=== PATIENT | female | born 1980 | race Caucasian/White ===

== ENCOUNTER 2020-08-08 15:18 | Emergency (ER) | payer MEDICARE ==
[~2020-08-08] VITALS: Ht 167.7 cm; Wt 79.1 kg
[~2020-08-08 15:18] MED LIST: CRS350T PO; HYDR-2890 PO
--- NOTE | 2020-08-08 15:21 | ED General ---
General Stated Complaint: VOMITING,DIARRHEA,ALL OVER BODY ACHES Source of Information: Patient History of Present Illness Date Seen by Provider: Aug 08, 2020 Time Seen by Provider: 15:21 Initial Comments Patient is a 40-year-old female with past medical history significant for bipolar disorder. She comes to the ER today for GI upset. Patient ate some pizza last night. Shortly after eating the pizza, she had onset of vomiting and diarrhea. She has had a total of 3 episodes of emesis since onset of symptoms. She has had too numerous to count episodes of diarrhea. She has been unable to eat food for lack of appetite and states every time she eats she has immediate episode of diarrhea. No blood. She is currently on her menstrual cycle. No fever. She does complain of some pain over the epigastric area of her abdomen. She was healthy prior to onset of symptoms. No recent viral symptoms. Allergies and Home Medications Allergies Coded Allergies: No Known Drug Allergies (Unverified , 08/09/12) Home Medications Ondansetron 4 Mg Tab.rapdis, 4 MG PO Q6H Prescribed by: NICOLASA HEREDIA on 08/08/20 9893 Patient Home Medication List Home Medication List Reviewed: Yes Review of Systems Review of Systems Constitutional: weakness EENTM: no symptoms reported Respiratory: no symptoms reported Cardiovascular: no symptoms reported Gastrointestinal: see HPI Genitourinary: no symptoms reported Musculoskeletal: no symptoms reported Skin: no symptoms reported All Other Systems Reviewed Negative Unless Noted: Yes Past Tessvnf-Sllsyc-Xfcket Hx Patient Social History Recent Foreign Travel: No Contact w/Someone Who Travel: No Past Medical History Scoliosis Physical Exam Vital Signs Vital Signs - First Documented 08/08/20 15:20 Temp 36.1 Pulse 104 Resp 18 B/P (MAP) 106/77 (87) Pulse Ox 98 O2 Delivery Room Air Capillary Refill : Height, Weight, BMI Height: '" Weight: lbs. oz. kg; BMI Method:Stated General Appearance: No Apparent Distress, WD/WN HEENT: PERRL/EOMI Neck: Full Range of Motion, Supple Respiratory: Lungs Clear, Normal Breath Sounds Cardiovascular: Regular Rate, Rhythm, No Murmur Gastrointestinal: Normal Bowel Sounds, Soft, Other (mild tenderness to palpation over epigastric area but no guarding or rebound) Extremity: Normal Capillary Refill Neurologic/Psychiatric: Alert, Oriented x3 Skin: Normal Color, Warm/Dry Progress/Results/Core Measures Suspected Sepsis SIRS Temperature: Pulse: Respiratory Rate: Laboratory Tests 08/08/20 15:30: White Blood Count 16.0H Blood Pressure / Mean: Laboratory Tests 08/08/20 15:30: Creatinine 0.65, Platelet Count 392, Total Bilirubin 0.3 Results/Orders Lab Results Laboratory Tests Test 08/08/20 15:20 08/08/20 15:30 Range/Units Urine Color DARK YELLOW Urine Clarity CLOUDY Urine pH 6.5 5-9 Urine Specific [place] 1.025 H 1.016-1.022 Urine Protein TRACE H NEGATIVE Urine Glucose (UA) NEGATIVE NEGATIVE Urine Ketones 2+ H NEGATIVE Urine Nitrite NEGATIVE NEGATIVE Urine Bilirubin 1+ H NEGATIVE Urine Urobilinogen 0.2 < = 1.0 MG/DL Urine Leukocyte Esterase NEGATIVE NEGATIVE Urine RBC (Auto) 2+ H NEGATIVE Urine RBC 0-2 /HPF Urine WBC 2-5 /HPF Urine Squamous Epithelial Cells 25-50 H /HPF Urine Crystals NONE /LPF Urine Bacteria FEW H /HPF Urine Casts NONE /LPF Urine Mucus MODERATE H /LPF Urine Culture Indicated NO Urine Test NEGATIVE NEGATIVE White Blood Count 16.0 H 4.3-11.0 10^3/uL Red Blood Count 4.67 4.35-5.85 10^6/uL Hemoglobin 15.2 11.5-16.0 G/DL Hematocrit 43 35-52 % Mean Corpuscular Volume 92 80-99 FL Mean Corpuscular Hemoglobin 33 25-34 PG Mean Corpuscular Hemoglobin Concent 35 32-36 G/DL Red Cell Distribution Width 13.0 10.0-14.5 % Platelet Count 392 130-400 10^3/uL Mean Platelet Volume 10.0 7.4-10.4 FL Neutrophils (%) (Auto) 82 H 42-75 % Lymphocytes (%) (Auto) 12 12-44 % Monocytes (%) (Auto) 6 0-12 % Eosinophils (%) (Auto) 0 0-10 % Basophils (%) (Auto) 0 0-10 % Neutrophils # (Auto) 13.1 H 1.8-7.8 X 10^3 Lymphocytes # (Auto) 1.9 1.0-4.0 X 10^3 Monocytes # (Auto) 1.0 0.0-1.0 X 10^3 Eosinophils # (Auto) 0.0 0.0-0.3 10^3/uL Basophils # (Auto) 0.0 0.0-0.1 10^3/uL Neutrophils % (Manual) 61 % Lymphocytes % (Manual) 10 % Monocytes % (Manual) 7 % Eosinophils % (Manual) 0 % Basophils % (Manual) 0 % Band Neutrophils 19 % Atypical Lymphocytes 3 % Blood Morphology Comment NORMAL Sodium Level 135 135-145 MMOL/L Potassium Level 3.6 3.6-5.0 MMOL/L Chloride Level 96 L 98-107 MMOL/L Carbon Dioxide Level 22 21-32 MMOL/L Anion Gap 17 H 5-14 MMOL/L Blood Urea Nitrogen 7 7-18 MG/DL Creatinine 0.65 0.60-1.30 MG/DL Estimat Glomerular Filtration Rate > 60 BUN/Creatinine Ratio 11 Glucose Level 105 70-105 MG/DL Calcium Level 9.8 8.5-10.1 MG/DL Corrected Calcium 8.5-10.1 MG/DL Total Bilirubin 0.3 0.1-1.0 MG/DL Aspartate Amino Transf (AST/SGOT) 12 5-34 U/L Alanine Aminotransferase (ALT/SGPT) 11 0-55 U/L Alkaline Phosphatase 82 40-136 U/L Total Protein 7.9 6.4-8.2 GM/DL Albumin 4.6 H 3.2-4.5 GM/DL Lipase 13 8-78 U/L My Orders Orders - NICOLASA HEREDIA DO Ed Iv/Invasive Line Start (08/08/20 15:23) Cbc With Automated Diff (08/08/20 15:23) Comprehensive Metabolic Panel (08/08/20 15:23) Lipase (08/08/20 15:23) Urinalysis (08/08/20 15:23) Hcg,Qualitative Urine (08/08/20 15:23) Prochlorperazine Injection (Compazine In (08/08/20 15:30) Diphenhydramine Injection (Benadryl Inje (08/08/20 15:30) Ns Iv 1000 Ml (Sodium Chloride 0.9%) (08/08/20 15:30) Famotidine Injection (Pepcid Injection) (08/08/20 15:30) Ct Abdomen/Pelvis W (08/08/20 15:33) Manual Differential (08/08/20 15:30) Iohexol Injection (Omnipaque 350 Mg/Ml 1 (08/08/20 16:00) Received Contrast (Hold Metformin- Contr (08/08/20 16:00) Sodium Chloride Flush (Catheter Flush Sy (08/08/20 16:00) Ns (Ivpb) (Sodium Chloride 0.9% Ivpb Bag (08/08/20 16:00) D5 1/2 Ns 1000 Ml Iv Solution (Dextrose (08/08/20 16:30) Ondansetron Injection (Zofran Injectio (08/08/20 17:15) Medications Given in ED Current Medications Medications Dose Ordered Sig/Martha Route Start Time Stop Time Status Last Admin Dose Admin Diphenhydramine HCl 12.5 mg ONCE ONCE IM 08/08/20 15:30 08/08/20 15:31 DC 08/08/20 15:42 12.5 MG Famotidine 20 mg ONCE ONCE IVP 08/08/20 15:30 08/08/20 15:31 DC 08/08/20 15:43 20 MG Iohexol 100 ml ONCE ONCE IV 08/08/20 16:00 08/08/20 16:01 DC 08/08/20 16:15 100 ML Prochlorperazine Edisylate 10 mg ONCE ONCE IV 08/08/20 15:30 08/08/20 15:31 DC 08/08/20 15:42 10 MG Sodium Chloride 10 ml NEEDED PRN IV 08/08/20 16:00 08/08/20 16:15 10 ML Sodium Chloride 100 ml ONCE ONCE IV 08/08/20 16:00 08/08/20 16:01 DC 08/08/20 16:15 100 ML Vital Signs/I&O 08/08/20 15:20 Temp 36.1 Pulse 104 Resp 18 B/P (MAP) 106/77 (87) Pulse Ox 98 O2 Delivery Room Air Capillary Refill : Progress Note : Time: 15:32 Progress Note Patient is examined on arrival to her room. She is in no acute distress but does feel nauseated. She has GI distress that occurred after she ate food last evening. We will place IV, check labs, and give her medications for symptom relief and reevaluate. 117:31: Patient is feeling much better. CT scan is reviewed and without acute findings. Labs are overall normal. She does have some ketones in the urine. She has no findings suspicious for acute infectious problem. Urine sample was contaminated but also without signs of infection. She is currently feeling better after receiving Compazine and Benadryl. She received 1 L of normal saline in the ER followed by 1 L of D5NS. Plan is for discharge home. She is given Zofran to use for symptom relief at home. Return precautions discussed and she will come back to the ER for any new or worsening symptoms. Otherwise, follow-up with primary care doctor. Incidentally, the patient suffered a dog bite last week. She has sutures in the posterior left leg which are due for removal. The wound is well healing with no signs of infection despite that she was unable to tolerate the antibiotics prescribed. Sutures are removed this visit. Departure Impression Primary Impression: Gastroenteritis Disposition: 01 HOME, SELF-CARE Condition: Improved Departure-Patient Inst. Referrals: NO,LOCAL PHYSICIAN (PCP/Family) Primary Care Physician Scripts Ondansetron (Ondansetron Odt) 4 Mg Tab.rapdis 4 MG PO Q6H for Nausea/Vomiting, #12 TAB Prov: NICOLASA HEREDIA DO 08/08/20 NICOLASA HEREDIA DO Aug 08, 2020 15:21
[2020-08-08] MEDS ORDERED: PROCHLORPERAZINE 10 MG/2ML INJ (COMPAZINE) IV ONE (15:30)
[2020-08-08] MEDS ORDERED: diphenhydrAMINE 50 MG/ML INJ (BENADRYL) IM ONE (15:30)
[2020-08-08] MEDS ORDERED: FAMOTIDINE 20MG/2ML IV (PEPCID) IVP ONE (15:30)
[2020-08-08] MEDS ORDERED: NS IV 1000 ML 1,000 ML IV SCH (15:30)
[2020-08-08 15:53] LABS: BASOPHILS % (AUTO) 0 % (0-10); EOSINOPHILS % (AUTO) 0 % (0-10); HEMATOCRIT 43 % (35-52); HEMOGLOBIN 15.2 G/DL (11.5-16.0); LYMPHOCYTES # (AUTO) 1.9 X 10^3 (1.0-4.0); LYMPHOCYTES % (AUTO) 12 % (12-44); MEAN CORPUSCULAR HEMOGLOBIN 33 PG (25-34); MEAN CORPUSCULAR HGB CONC 35 G/DL (32-36); MEAN CORPUSCULAR VOLUME 92 FL (80-99); MONOCYTES % (AUTO) 6 % (0-12); NEUTROPHILS # (AUTO) 13.1 X 10^3 (1.8-7.8); NEUTROPHILS % (AUTO) 82 % (42-75); PLATELET COUNT 392 10^3/uL (130-400)
[2020-08-08 15:54] LABS: CLARITY,URINE CLOUDY; COLOR,URINE DARK YELLOW; GLUCOSE, URINE (UA) NEGATIVE (NEGATIVE); KETONES,URINE 2+ (NEGATIVE); NITRITE,URINE NEGATIVE (NEGATIVE); PH,URINE 6.5 (5-9); PROTEIN,URINE TRACE (NEGATIVE)
[2020-08-08 15:55] LABS: BACTERIA,URINE FEW /HPF; BILIRUBIN,URINE 1+ (NEGATIVE); LEUKOCYTE ESTERASE ,URINE NEGATIVE (NEGATIVE); RBC,URINE 0-2 /HPF; SQUAMOUS EPITHELIAL CELL,UR 25-50 /HPF
[2020-08-08] MEDS ORDERED: IOHEXOL 350 MG/ML 100 ML (OMNIPAQUE 350) VIAL IV ONE (16:00)
[2020-08-08] MEDS ORDERED: HOLD METFORMIN - RECEIVED CONTRAST 20 ML VIAL IV SCH (16:00)
[2020-08-08] MEDS ORDERED: NS 100 ML (IVPB) BAG IV ONE (16:00)
[2020-08-08] MEDS ORDERED: CATHETER FLUSH 10 ML SYR IV PRN (16:00)
[2020-08-08 16:01] LABS: BUN/CREATININE RATIO 11; CARBON DIOXIDE 22 MMOL/L (21-32); CHLORIDE 96 MMOL/L (98-107); CREATININE SERUM 0.65 MG/DL (0.60-1.30); GFR ESTIMATED > 60; GLUCOSE 105 MG/DL (70-105); POTASSIUM 3.6 MMOL/L (3.6-5.0); SODIUM 135 MMOL/L (135-145)
[2020-08-08 16:02] LABS: ALANINE AMINOTRANSFERASE 11 U/L (0-55); ALBUMIN 4.6 GM/DL (3.2-4.5); ALKALINE PHOSPHATASE 82 U/L (40-136); BILIRUBIN,TOTAL 0.3 MG/DL (0.1-1.0); CALCIUM 9.8 MG/DL (8.5-10.1); LIPASE 13 U/L (8-78); TOTAL PROTEIN 7.9 GM/DL (6.4-8.2)
[2020-08-08 16:08] LABS: BAND NEUTROPHILS 19 %; NEUTROPHILS % (MANUAL) 61 %
[2020-08-08 16:09] LABS: ATYPICAL LYMPHOCYTES 3 %; BASOPHILS % (MANUAL) 0 %; EOSINOPHILS % (MANUAL) 0 %; LYMPHOCYTES % (MANUAL) 10 %; MONOCYTES % (MANUAL) 7 %; RBC MORPH NORMAL
[2020-08-08] MEDS ORDERED: morphine INJ 10 MG/ML 1ML (SYR OR VIAL) IVP STA (16:17)
[2020-08-08] MEDS ORDERED: D5 1/2 NS 1000 ML IV SOLUTION 1,000 ML IV SCH (16:30)
--- NOTE | 2020-08-08 16:36 | Diagnostic Imaging Report ---
PROCEDURE: CT abdomen and pelvis with contrast. TECHNIQUE: Multiple contiguous axial images were obtained through the abdomen and pelvis after administration of intravenous contrast. Auto Exposure Controls were utilized during the CT exam to meet ALARA standards for radiation dose reduction. INDICATION: Epigastric abdominal pain. Cramping. Body aches. Elevated white blood cell count. No relevant comparison available FINDINGS: The visualized lung bases demonstrate mild dependent atelectasis. There is no pleural or pericardial effusion. The liver demonstrates a small region of low density along the falciform ligament likely reflecting a region of focal fatty infiltration. Portal veins are patent. The gallbladder nondistended without evidence gallstones or findings of biliary dilatation. Pancreas demonstrate no focal abnormality. The spleen is normal in size. There is no adrenal mass. Kidneys enhance normally and are nonobstructed. The stomach is nondistended. There are no findings of abnormal small bowel dilation. The colon is normal in caliber. There is no evidence of small or large bowel mucosal thickening or hyperenhancement. There is moderate stool within the colon. The appendix is normal. Urinary bladder, uterus and adnexal regions unremarkable by CT. There are no findings of free air, free fluid, abscess or adenopathy. Aorta is normal in caliber. There is no acute or suspicious osseous abnormality. Degenerative endplate changes and facet arthropathy most advanced at L4-L5. IMPRESSION: 1. No CT evidence of an acute inflammatory or obstructive process within the abdomen or pelvis. 2. No bowel obstruction or focal bowel thickening. The appendix is normal. 3. No free fluid, abscess or adenopathy. Dictated by: Dictated on workstation # [id number]
[2020-08-08] MEDS ORDERED: ONDA4TAB11 PO (17:08)
[2020-08-08] MEDS ORDERED: ONDANSETRON 4 MG/2 ML (SDV) Z0FRAN IVP ONE (17:15)
[2020-08-08 17:22] VITALS: BP 118/70
== END 2020-08-08 17:25 | disposition home or self-care (01) ==
LOC: EDUNIT# 15:18 → ER FS 15:20
DX: K52.9 Noninfective gastroenteritis and colitis, unspecified (principal); F31.9 Bipolar disorder, unspecified
CPT/HCPCS: 36415; 74177; 80053; 81000; 83690; 84703; 85007; 85027